=== PATIENT | male | born 1985 | race Caucasian/White ===

== ENCOUNTER 2022-06-15 09:16 | Emergency (ER) | payer OTHER ==
[~2022-06-15] VITALS: Ht 182.9 cm; Wt 88.5 kg
--- NOTE | 2022-06-15 10:00 | NUR ---
Pt seen by . Safety measures in place. Will continue to monitor.
[2022-06-15 10:20] LABS: MEAN CORPUSCULAR HEMOGLOBIN 31.1 uug (23.8-33.4); MEAN CORPUSCULAR VOLUME 94.7 fL (73.0-96.2); PLATELET COUNT (AUTO) 380 K/uL (152-348)
[2022-06-15 10:34] LABS: CREATININE 1.2 mg/dL (0.6-1.3); POTASSIUM 4.1 mmol/L (3.5-5.1)
[2022-06-15] MEDS ORDERED: SWABABLE VALVE TRANSFER SET EA MC ONE (10:55)
[2022-06-15] MEDS ORDERED: IV NORMAL SALINE 250 ML IV ONE (10:55)
[2022-06-15] MEDS ORDERED: IOHEXOL 300MG/ML 100 ML INFUS..BTL ONE (10:55)
[2022-06-15] MEDS ORDERED: IBUPROFEN 600 MG TABLET PO ONE (11:00)
[2022-06-15] MEDS ORDERED: ACETAMINOPHEN ES 500 MG TABLET PO ONE (11:00)
[2022-06-15] MEDS ORDERED: IBUPROFEN 600 MG TABLET ONE (11:14)
[2022-06-15] MEDS ORDERED: ACETAMINOPHEN ES 500 MG TABLET ONE (11:14)
--- NOTE | 2022-06-15 11:45 | NUR ---
Pt currently in stable condition. Safety measures in place. Will continue to monitor.
--- NOTE | 2022-06-15 12:25 | NUR ---
Patient discharged to home in stable condition. Written and verbal after care instructions given. Patient verbalizes understanding of instructions. Gave patient excuse from work signed by MD. Stressed follow up or return to ER for worsening s/s.
[2022-06-15 12:27] VITALS: BP 139/99
== END 2022-06-15 12:28 | disposition home or self-care (01) ==
LOC: ER 09:19
DX: S20.211A Contusion of right front wall of thorax, initial encounter (principal); S60.011A Contusion of right thumb without damage to nail, initial encounter; V43.52XA Car driver injured in collision with other type car in traffic accident, initial encounter; Y93.89 Activity, other specified; Y92.410 Unspecified street and highway as the place of occurrence of the external cause; Y99.8 Other external cause status
CPT/HCPCS: 99285; 71260; 71045; 80048; 85025; 85730; 86850; 86900; 86901; 36415; 73110; 73130; 74177; Q9967; A4663; A9150